=== PATIENT | male | born 1985 | race Caucasian/White ===

== ENCOUNTER 2017-05-25 16:37 | Emergency (ER) | payer SELFPAY ==
[~2017-05-25] VITALS: Ht 175.3 cm; Wt 74.8 kg
[2017-05-25 17:00] VITALS: BP 124/94
[2017-05-25] MEDS ORDERED: Ketorolac 30mg Inj IV ONE (17:00)
[2017-05-25] MEDS ORDERED: Morphine Sulfate 4mg/ml Inj IVP ONE (17:00)
--- NOTE | 2017-05-25 17:37 | Diagnostic Imaging Report ---
Indication: Shoulder pain Technique: 2 views of the right shoulder Comparison: none Findings: There is an anterior dislocation of the right humeral head. No definite fracture deformity demonstrated. Impression: Positive for right shoulder dislocation. No underlying fracture Findings discussed by phone with Dr. Nina at the time of interpretation
[2017-05-25] MEDS ORDERED: IBUPROFEN600 MG ORAL (18:18)
[2017-05-25] MEDS ORDERED: NORCO 5-325 TA1 EAC1 ORAL (18:19)
--- NOTE | 2017-05-25 18:23 | Emergency Room Report ---
History of Present Illness General Chief Complaint: Upper Extremity Injury Source: Patient Present Illness HPI Patient is a 31-year-old male who presented after increased right shoulder pain. Patient had prior history of shoulder dislocations and prior shoulder surgery. Patient reports having dislocated shoulder after striking his arm. He reports having increased pain with movement. He reports having some numbness to his hands. He denies any fever. \ Allergies: Coded Allergies: No Known Allergies (Unverified , 05/25/17) Patient History Past Medical History: see triage record Reviewed Nursing Documentation: PMH: Agreed; PSxH: Agreed Nursing Documentation-PMH Past Medical History: No Stated History Review of Systems All Other Systems: negative except mentioned in HPI Physical Exam Vital Signs Date Time Temp Pulse Resp B/P (MAP) Pulse Ox O2 Delivery O2 Flow Rate FiO2 05/25/17 16:47 97.4 98 20 124/94 99 Room Air 97.3 General Appearance: well appearing, no apparent distress, alert, GCS 15 Head: normocephalic, atraumatic ENT: hearing grossly normal, normal voice Neck: full range of motion, supple Respiratory: no respiratory distress, speaking full sentences Musculoskeletal: no calf tenderness, decreased range of mation, other - anterior fullness Neurologic: normal gait Psychiatric: mood/affect normal Skin: no rash Medical Decision Making Diagnostic Impression: Primary Impression: Anterior shoulder dislocation ER Course Patient presented for shoulder pain. Differential diagnoses included was not limited to fracture, dislocation, a.c. separation, septic joint. Patient presented after shoulder dislocation. X-ray imaging of the right shoulder 3 views read by radiology showed an inferior shoulder dislocation without evident fracture. Patient was given morphine and Toradol for pain. Shoulder was reduced with axial traction and external rotation. Patient was placed in a sling.The patient is advised to follow-up with his primary care physician for orthopedic referral. Last Vital Signs Date Time Temp Pulse Resp B/P (MAP) Pulse Ox O2 Delivery O2 Flow Rate FiO2 05/25/17 17:37 97.4 05/25/17 16:47 98 20 124/94 99 Room Air Status: improved Disposition: HOME, SELF-CARE Condition: Stable Scripts Hydrocodone Bit/Acetaminophen 5-325* (NORCO 5-325 TABLET*) 1 Each Tablet 1 TAB ORAL Q4H PRN for For Pain, #14 TAB Prov: Yinka Nina 05/25/17 Ibuprofen* (MOTRIN*) 600 Mg Tablet 600 MG ORAL Q8H PRN for For Pain, #30 TAB 0 Refills Prov: Yinka Nina 05/25/17 Patient Instructions: Shoulder Dislocation Yinka Nina May 25, 2017 18:23
[2017-05-25 18:58] VITALS: BP 124/94
--- NOTE | 2017-05-26 11:10 | Diagnostic Imaging Report ---
Indication: Pain, post reduction of shoulder dislocation Technique: 2 views of the right shoulder Comparison: 1 1/2 hours earlier Findings: Interim reduction of previously demonstrated anterior shoulder dislocation, now satisfactory anatomic alignment. No definite bony abnormality Impression: Successful reduction of previously demonstrated right shoulder dislocation
== END 2017-05-25 18:59 | disposition home or self-care (01) ==
LOC: EMR 17:25
DX: S43.014A Anterior dislocation of right humerus, initial encounter (principal); X58.XXXA Exposure to other specified factors, initial encounter; Y92.9 Unspecified place or not applicable
CPT/HCPCS: 73020; 73030; 96374; 96375; 99284; J1885; J2270